=== PATIENT | male | born 1960 | race Caucasian/White ===

== ENCOUNTER 2024-08-30 09:55 | Emergency (ER) | payer SELFPAY ==
--- NOTE | ~2024-08-30 | XR_ITS ---
EXAMINATION: XR chest 2V DATE: 08/30/2024 10:47 INDICATION: Shortness of breath. TECHNIQUE: Frontal and lateral views of the chest were obtained. COMPARISON: None. FINDINGS: There is a moderate-sized right pleural effusion. There are airspace opacities at right mari g base. No pneumothorax. The heart size is normal. IMPRESSION: 1. Moderate-sized right pleural effusion. 2. Airspace opacities at right lung base, consistent with atelectasis versus pneumonia. Reviewed, dictated and finalized at location A. SSIONS CLERK IMPRESSION: 1. Moderate-sized right pleural effusion. 2. Airspace opacities at right lung base, consistent with atelectasis versus pn eumonia.
[2024-08-30 10:00] VITALS: BP 112/88; PULSE 103; RESP 20; TEMP 36.3; O2SAT 100
--- NOTE | 2024-08-30 10:07 | ED.URI ---
HPI - URI/Sore Throat General Chief Complaint: Upper Respiratory Infection Stated Complaint: SOB Time Seen by Provider: 08/30/24 10:08 Source: patient, RN notes reviewed and old records reviewed Mode of arrival: ambulatory Limitations: no limitations Related Data Allergies Allergy/AdvReac Type Severity Reaction Status Date / Time No Known Allergies Allergy Verified 08/30/24 10:23 Review of Systems Review of Systems: All systems reviewed & are unremarkable except as noted in HPI and below Constitutional: Constitutional: Reports no additional constitutional complaints Eyes: Eyes: Reports no additional eye complaints ENT: Reports system reviewed and no additional complaints, except as documented Cardiovascular: Cardiovascular: Reports no additional cardiovascular complaints, Denies chest pain and Denies dyspnea Respiratory: Respiratory: Reports no additional respiratory complaints, Denies cough and Denies dyspnea Musculoskeletal: Musculoskeletal: Reports no additional musculoskeletal complaints Neurologic: Reports system reviewed and no additional complaints, except as documented Psychiatric: Psychiatric: Reports no additional psychiatric complaints PMFSH Comments At the time of my signature, I reviewed and agree with the nursing past medical, surgical, social, and family history. There is no relevant family history pertinent to the patient complaint. Exam Const: General: cooperative, healthy appearing, comfortable, no acute distress, alert and well nourished Nutritional Appearance: well nourished Orientation/consciousness: patient oriented x3 Limitations: no limitations HENMT: Head: normal to inspection Ears: external ears normal Face/Nose/Sinus: Normal external nose present, Normal nares present, normal facial exam, No erythema and No edema Face and sinus: normal facial exam, no erythema and no edema Mouth: Yes Normal oral and palatal mucosa present Eyes: General: appearance normal, both eyes and all related structures Neck: Neck: normal visual inspection, full ROM and no meningeal signs Lymphatic: no lymphadenopathy noted and no lymphedema noted Chest: Chest palpation & inspection: normal inspection of the chest Resp: Effort & Inspection: normal respiratory effort and able to speak in complete sentences Auscultation: clear to auscultation bilaterally Cardio: Jugular venous distension: no JVD Rate: regular rate Rhythm: regular rhythm Back/Spine/Pelvis: Cervical Spine: cervical ROM normal Skin: General skin exam: normal color, no rashes or lesions noted and turgor normal Neuro: General: patient oriented x3, gait normal, moves all extremities and no meningeal signs Speech: normal speech Gait exam (Neuro): Normal gait present Extrem: General: normal to inspection, full ROM and capillary refill normal Psych: Appearance: grossly normal and well kempt Course Course Emergency Course: Some parts of this dictation were generated by voice recognition software and may contain typographical and/or grammatical inaccuracies. Level of Care: Express Care Visit Vital Signs Vital signs: Vital Signs Temperature 36.3 C L 08/30/24 10:00 Pulse Rate 103 H 08/30/24 10:00 Respiratory Rate 20 08/30/24 10:00 Blood Pressure 112/88 08/30/24 10:00 Pulse Oximetry 100 08/30/24 10:00 Oxygen Delivery Room Air 08/30/24 10:00 Temperature 36.3 C L 08/30/24 10:00 Pulse Rate 103 H 08/30/24 10:00 Respiratory Rate 20 08/30/24 10:00 Blood Pressure 112/88 08/30/24 10:00 Pulse Oximetry 100 08/30/24 10:00 Oxygen Delivery Room Air 08/30/24 10:00 reviewed MDM - URI/Sore Throat MDM Narrative Medical decision making narrative: incentive spirometer Imaging Data Radiologist's impression: EXAMINATION: XR chest 2V DATE: 08/30/2024 10:47 INDICATION: Shortness of breath. TECHNIQUE: Frontal and lateral views of the chest were obtained. COMPARISON: None. FINDINGS: There is a moderate-sized right pleural effusion. There are airspace opacities at right lung base. No pneumothorax. The heart size is normal. IMPRESSION: 1. Moderate-sized right pleural effusion. 2. Airspace opacities at right lung base, consistent with atelectasis versus pneumonia. Discharge Plan Discharge Clinical Impression: Pneumonia involving right lung, Pleural effusion on right Patient Disposition: Home, Self-Care Condition: Stable Instructions: Pleural Effusion (DC), Pneumonia (ED) Additional Instructions: please finish entire course of antibiotic treatment please review detached instructions regarding pleural effusion and pneumonia and implement suggestions as tolerated. -Alternate Tylenol and Motrin per package directions for fever or pain. -Antihistamine medication such as Benadryl at night and Zyrtec/Claritin/Porsha during the day can help improve symptoms. -Use Flonase twice a day for 5 days then daily to help reduce the inflammation and dry up your sinuses. -You can also use Sudafed or Mucinex. Be sure to drink plenty of water with these medications at least 8 ounces with every dose and it is important to drink 8 to 10 glasses of water per day. Water is a natural decongestant -Eat and drink things that are easy to swallow, like tea or soup, or popsicles. -Oral rinses such as: Salt water gargles and/or may use topical anesthetic (eg. Chloraseptic spray) or lozenges to relieve dryness or throat pain). -Frequent hand washing or hand route sales trainee is one of the best ways to prevent spread of infection. -Using a vaporizer or humidifier at night will also help thin secretions and help with coughing up phlegm. -Follow up with primary care provider in 2-3 days if condition is not improving; or seek ER visit if you have trouble breathing, cannot drink enough fluids, have muffled voice, difficulty opening your mouth, or severe swelling. Prescriptions: New azithromycin 250 mg tablet 250 mg PO DAILY Qty: 6 0RF Rx Instructions: 250 mg orally. Take TWO tablets today, then one tablet daily for 4 days. prednisone 20 mg tablet See Rx Instructions .ROUTE .COMPLEX Qty: 9 0RF Rx Instructions: Take 40mg x3 days, 20mg x3 days amoxicillin-pot clavulanate 875-125 mg tablet 1 tablet PO Q12H Qty: 20 0RF albuterol sulfate 90 mcg/actuation HFA aerosol inhaler 2 puff inhalation QID PRN (Reason: shortness of breath or wheezing) Qty: 8.5 0RF Follow-up/Referrals: UNKNOWN,DOCTOR [Primary Care Provider] -
--- NOTE | 2024-08-30 11:00 | PC.NURSE ---
INCENTIVE SPIROMETER GIVEN TO PT AND INSTRUCTED ON USE
== END 2024-08-30 11:09 | disposition home or self-care (01) ==
PROVIDERS: Emergency Provider Nurse Practitioner Family
DX: J18.9 Pneumonia, unspecified organism (principal); J90 Pleural effusion, not elsewhere classified
CPT/HCPCS: 71046; 99213; G0463

== ENCOUNTER 2024-09-11 12:50 | Emergency (ER) | payer SELFPAY ==
[2024-09-11 12:55] VITALS: BP 138/94; PULSE 115; RESP 22; TEMP 36.4; O2SAT 94
[2024-09-11 13:38] VITALS: PULSE 114; RESP 24; O2SAT 78
--- NOTE | 2024-09-11 13:40 | ED_ITS ---
HPI - General Adult General Chief complaint: Shortness of Breath/Dyspnea Stated complaint: Feet Swelling Source: patient and family Mode of arrival: ambulatory Limitations: no limitations History of Present Illness HPI narrative: Pt presents for evaluation of BLE swelling for the past two days. He was seen here at the end of August and had a CXR that showed a pleural effusion. He states he was feeling SOB at that time. He was given azithromycin, augmentin and prednisone. He completed therapy. He felt like his symptoms were improving however he noted swelling in his legs with worsening SOB two days ago. He has a cough but denies chest pain, fever, chills, nausea or vomiting. He consumes alcohol a few days per week, four drinks at a time. He does not smoke. He has not seen a healthcare provider in ten years. Related Data Allergies Allergy/AdvReac Type Severity Reaction Status Date / Time No Known Allergies Allergy Verified 08/30/24 10:23 Review of Systems Review of Systems: CONSTITUTIONAL: Denies fever, chills, or sweats. EYES: Denies visual changes, redness, or discharge. ENT: Denies rhinorrhea, congestion, sore throat, or otalgia. CARDIOVASCULAR: Reports leg swelling. Denies chest pain and palpitations RESPIRATORY: Reports cough and shortness of breath. GASTROINTESTINAL: Denies abdominal pain, nausea, vomiting, or diarrhea. GENITOURINARY: Denies dysuria or hematuria. SKIN: Reports redness in BLE MUSCULOSKELETAL: Denies back pain, joint pain, or myalgia. NEUROLOGIC: Denies headache, numbness, dizziness, or weakness. PSYCHIATRIC: Denies anxiety or depression. [facility] Past Medical History Medical History No pertinent past medical history Surgical History Surgical History No pertinent past surgical history Family History Family History Mother Family history non-contributory Social History Social History (Updated 09/11/24 @ 13:45 by TEMITOPE Beyer, AKASH) Smoking status: Never smoker Alcohol intake: current Alcohol use details: 4 drinks at a time several days per week Living arrangements: with family Gender identity (if verbalized by the patient): Male Spiritual care concerns: No Exam Narrative: GENERAL: Well-appearing, well-nourished, and in no acute distress. HEAD: Normocephalic, atraumatic. EYES: PERRLA and EOMI. ENT: Nares clear, no rhinorrhea or epistaxis. Mucous membranes moist. Oropharynx without tonsillar hypertrophy exudate or other lesions. Bilateral TMs pearly shipley nonbulging NECK: Supple. No adenopathy or masses. No carotid bruits or JVD CHEST: Diminished breath sounds on the right. HEART: Rate 115. Regular rhythm. No murmur heard. Normal peripheral pulses. ABDOMEN: Soft, nontender, nondistended, normal active bowel sounds. EXTREMITIES: 2+ pitting edema bilateral lower extremities Normal range of motion. SKIN: petechiae noted bilateral lower extremities. He is jaundice and pale NEURO: No focal deficits. Alert and oriented x3. PSYCH: Normal mood and affect. Course Course Emergency Course: This is a 64-year-old male who presented for evaluation of swelling in the lower extremities. He was tachycardic. I ambulated him in the hallway and his oxygen level dropped into the 60's. I recommended he be transferred to the hospital. Initially he and his family member indicated that they would not go as they were concerned about healthcare costs. I did share that I would not be sending him there if I did not believe it was clinically necessary. i recommended we contact EMS. He and family declined. They indicated that he would go via private vehicle. At rest his saturations normalized. [facility] is his facility of choice. I contacted the emergency department at [facility] and spoke with nurse practitioner, Qian Bowen. She indicated that Dr. Melissa would accept pt for transfer there. Pt was taken by wheelchair to the vehicle and was advised not to walk into the department but to allow the staff there to take him in based upon desaturations with ambulation. Patient and family member agreeable to plan Level of Care: Express Care Visit Discharge Plan Discharge Clinical Impression: Hypoxemia Patient Disposition: Acute Care Hospital Condition: Stable Instructions: Hypoxemia (DC) Patient Language: Kyrgyz Prescriptions: No Action azithromycin 250 mg tablet 250 mg PO DAILY Qty: 6 0RF Rx Instructions: 250 mg orally. Take TWO tablets today, then one tablet daily for 4 days. prednisone 20 mg tablet See Rx Instructions .ROUTE .COMPLEX Qty: 9 0RF Rx Instructions: Take 40mg x3 days, 20mg x3 days amoxicillin-pot clavulanate 875-125 mg tablet 1 tablet PO Q12H Qty: 20 0RF albuterol sulfate 90 mcg/actuation HFA aerosol inhaler 2 puff inhalation QID PRN (Reason: shortness of breath or wheezing) Qty: 8.5 0RF Follow-up/Referrals: PHYSICIAN,CROP ROLLER [Primary Care Provider] - Time of Disposition: 13:39
== END 2024-09-11 13:38 | disposition short-term general hospital (02) ==
PROVIDERS: Emergency Provider Nurse Practitioner
DX: R09.02 Hypoxemia (principal)
CPT/HCPCS: 99212; G0463